=== PATIENT | male | born 1985 | race Caucasian/White ===

== ENCOUNTER 2021-04-05 20:00 | Emergency (ER) | payer OTHER ==
[~2021-04-05] VITALS: Ht 182.9 cm; Wt 98.9 kg
[2021-04-05 20:31] LABS: ABSOLUTE NEUTROPHILS 2.4 thou/uL (1.4-8.2); BASOPHILS 0.6 % (0.0-2.0); EOSINOPHILS 7.6 % (0.0-3.0); HEMATOCRIT 37.9 % (42.0-52.0); HEMOGLOBIN 13.6 gm/dL (14.0-18.0); LYMPHOCYTES 42.4 % (24.0-44.0); MCH 32.3 pg (26.0-34.0); MCHC 35.8 g/dL (28.0-37.0); MCV 90.4 fL (80.0-100.0); MONOCYTES 12.6 % (1.0-8.0); PLATELET COUNT 258 thou/uL (150-400); POLYS 36.8 % (36.0-66.0); RDW 12.5 % (10.5-14.5); WBC 6.4 thou/uL (4.0-11.0)
[2021-04-05 20:40] LABS: CALCIUM 8.3 mg/dL (8.5-10.1); POTASSIUM 3.9 mmol/L (3.5-5.1)
[2021-04-05 20:46] LABS: TOTAL BILIRUBIN 0.4 mg/dL (0.2-1.0); TOTAL PROTEIN 7.5 g/dL (6.4-8.2)
[2021-04-05 21:06] LABS: URINE BILIRUBIN NEGATIVE (Negative); URINE BLOOD NEGATIVE (Negative); URINE CLARITY CLEAR; URINE COLOR YELLOW; URINE GLUCOSE-RANDOM* NEGATIVE (Negative); URINE KETONES NEGATIVE (Negative); URINE LEUKOCYTES-REFLEX NEGATIVE (Negative); URINE NITRITE-REFLEX NEGATIVE (Negative); URINE PROTEIN (DIPSTICK) NEGATIVE (Negative); URINE UROBILINOGEN 0.2 E.U./dl (0.2-1.0)
[2021-04-05 22:37] VITALS: BP 114/80
== END 2021-04-05 22:38 | disposition home or self-care (01) ==
LOC: ER 20:00
PROVIDERS: Emergency Medicine
DX: R10.31 Right lower quadrant pain (principal); N50.811 Right testicular pain; Z88.1 Allergy status to other antibiotic agents